=== PATIENT | female | born 1990 | race Two or more races ===

== ENCOUNTER 2024-11-05 11:48 | Observation (INO) | payer MEDICAID, SELFPAY ==
[2024-11-05] VITALS (13 sets, daily range): BP systolic 92–108; BP diastolic 49–71; PULSE 77–100; RESP 18
--- NOTE | 2024-12-01 18:37 | PM.OBTRLD ---
OB - Triage/Final Diagnosis Visit Information Comments/Additional reasons for admission: I have assessed the risk for this patient, Shelia Landis, and determined that she would benefit from observation care. Final Diagnosis (1) False labor: Code(s): O47.9 - False labor, unspecified Status: Acute
== END 2024-11-05 16:00 | disposition home or self-care (01) ==
PROVIDERS: Admitting Provider Obstetrics & Gynecology; Visit Provider Obstetrics & Gynecology
DX: O47.1 False labor at or after 37 completed weeks of gestation (principal); Z3A.37 37 weeks gestation of pregnancy
CPT/HCPCS: G0378; G0379

== ENCOUNTER 2024-11-10 07:20 | Observation (INO) | payer MEDICAID, SELFPAY ==
[2024-11-10] MEDS: TERBUTALINE SULFATE 1 MG/ML VIAL 0.25 MG SUB-Q (07:30)
--- NOTE | 2024-12-01 18:38 | PN_ITS ---
This report was moved to the correct visit on 12/02/2024. The original report was signed by Cody Guy MD on 12/01/241837. OB - Triage/Final Diagnosis Visit Information Comments/Additional reasons for admission: I have assessed the risk for this patient, Shelia Landis, and determined that she would benefit from observation care. Final Diagnosis (1) False labor: Code(s): O47.9 - False labor, unspecified Status: Acute Please be advised this is a medical document. It is intended for [id number] communication. It is written in medical language and may contain unfamiliar abbreviations or verbiage. Medical documents are intended to carry relevant information, facts as evident, and the clinical opinion of the practitioner at the time of the encounter. This report may have been done utilizing a voice recognition system. Attempts have been made to correct errors. However, there may be uncorrected grammatical, spelling, and recognition errors present. The file time of this note does not necessarily represent the time the patient was seen. Report Initialized date/time: Cody Guy MD 12/01/241837 Electronically signed by: Cody Guy MD 12/01/241837
== END 2024-11-10 08:54 | disposition home or self-care (01) ==
PROVIDERS: Admitting Provider Obstetrics & Gynecology; Visit Provider Obstetrics & Gynecology
DX: O47.1 False labor at or after 37 completed weeks of gestation (principal); Z3A.38 38 weeks gestation of pregnancy
CPT/HCPCS: 96372; G0378; G0379; J3105

== ENCOUNTER 2024-11-11 14:28 | Observation (INO) | payer MEDICAID, SELFPAY ==
[2024-11-11] VITALS (10 sets, daily range): BP systolic 92–116; BP diastolic 50–69; PULSE 67–85; BMI 24.7
--- NOTE | 2024-11-11 15:00 | LDADM ---
This patient, Shelia Landis, was admitted to Labor/Delivery/Recovery 108 on 11/11/24 at 14:28. Plans for labor, pain management and were discussed with patient. Patient/family oriented to hospital policies and general routines including ID bracelet, bed and alarms, visiting hours, pain management, procedures, bathroom and other care routines, personal items, smoking policy, room service/diet and guest tray routines, security routines, and visiting hours. Patient/Family are encouraged to report perceived risks to care and to ask questions if they do not understand what they are told or what they should do. See OBIX for further documentation.
== END 2024-11-11 17:10 | disposition home or self-care (01) ==
PROVIDERS: Admitting Provider Obstetrics & Gynecology; Visit Provider Obstetrics & Gynecology
DX: O47.1 False labor at or after 37 completed weeks of gestation (principal); Z3A.38 38 weeks gestation of pregnancy
CPT/HCPCS: G0378; G0379

== ENCOUNTER 2024-11-13 08:32 | Inpatient (IN) | payer MEDICAID, SELFPAY ==
[2024-11-13] VITALS (82 sets, daily range): BP systolic 70–127; BP diastolic 36–80; PULSE 57–291; RESP 16–17; TEMP 36.6–36.8; O2SAT 77–100; BMI 24.7
--- NOTE | 2024-11-13 08:32 | LDADM ---
This patient, Shelia Landis, was admitted to Labor/Delivery/Recovery 105 on 11/13/24 at 08:32. Plans for labor, pain management and were discussed with patient. Patient/family oriented to hospital policies and general routines including ID bracelet, bed and alarms, visiting hours, pain management, procedures, bathroom and other care routines, personal items, smoking policy, room service/diet and guest tray routines, security routines, and visiting hours. Patient/Family are encouraged to report perceived risks to care and to ask questions if they do not understand what they are told or what they should do. See OBIX for further documentation.
--- NOTE | 2024-11-13 10:22 | WPDOBADMIT ---
Obstetrics - Admit Note Admission Note: record reviewed. No pertinent additions to the history and/or any subsequent changes in the physical findings that are not consistent with the expected course of the were found. Additions to the history and/or subsequent changes in the physical findings follow. Admit for contractions, FHR noted to have decelerations, discussed with dr. talley decision to augment labor for delivery, SVE /-1 large amount of meconium fluid, IUPC placed, anticipate vaginal delivery
[2024-11-13] MEDS: LACTATED RINGERS 1,000 ML 125 ML (10:38)
[2024-11-13 11:23] LABS: Hematocrit 41.1 % (37.0-47.0); Hemoglobin 12.9 g/dL (12.0-15.0); Immature Granulocyte Percent A 1.1 % (0-0.5); Lymphocytes Absolute Auto 1.44 K/mm3 (0.9-3.2); Mean Corpuscular HGB Conc 31.4 g/dl (32-36); Mean Corpuscular Hemoglobin 26.7 pg (26-34); Mean Corpuscular Volume 84.9 fl (80-100); Nucleated Red Blood Cells Absolute Auto 0.000 K/mm3 (0.0-0.012); Nucleated Red Blood Cells Perc 0.0 % (0.0-0.2); Platelet Count Result 150 k/mm3 (150-375); Red Blood Count 4.84 M/mm3 (4.2-5.4); White Blood Count 11.4 K/mm3 (4.5-10.0)
[2024-11-13] MEDS: LACTATED RINGERS 1,000 ML 125 ML IV CONT (11:36)
[2024-11-13 12:03] LABS: Syphilis IgG/IgM Antibody Non-Reactive (Nonreactive)
[2024-11-13] MEDS: OXYTOCIN 30 UNITS/NS 500 ML 30 UNITS/500 ML BAG 999 UNITS IV CONT (13:30)
--- NOTE | 2024-11-13 13:37 | PM.OBPRVD ---
OB - Vaginal Delivery Note Procedure Delivery date: 11/13/24 Intrapartal Events: Decelerations and Other (meconium) Delivery monitor: External FHT and Internal Uterine Route of delivery: Episiotomy description: None Laceration Description: Perineal - 2nd Degree Delivery repair: vicryl Specimen: Yes Quantitative Blood Loss (ml): 200 Anesthesia type: Epidural Disposition: Floor Baby Date of : 11/13/24 Time of : 13:28 Gestational Age by Date: 38 Infant gender: Male presentation: vertex position: Left Occiput Anterior Placenta delivery description: Expressed Cord Vessel Description: 3 Vessels and Clamped/Cut score one minute: 6 score five minutes: 9
--- NOTE | 2024-11-13 13:39 | P.PNAN_ITS ---
Anes - Initial Pre Proc Eval Date/Time: 11/13/24 13:39 Surgeon: Cody Guy MD Pre Op Diagnosis: labor Patient Data Age: 34 Gender: F Height: 1.55 m Weight: 59.5 kg Last Vital Signs Pulse 76 11/13/24 13:31 BP 115/56 L 11/13/24 13:31 Pulse Ox 100 11/13/24 13:24 O2 Del Method Room Air 11/13/24 12:01 Allergies Allergy/AdvReac Type Severity Reaction Status Date / Time No Known Allergies Allergy Verified 11/10/24 07:35 Laboratory Tests 11/13/24 11:14 WBC 11.4 H K/mm3 (4.5-10.0) RBC 4.84 M/mm3 (4.2-5.4) Hgb 12.9 g/dL (12.0-15.0) Hct 41.1 % (37.0-47.0) MCV 84.9 fl (80-100) MCH 26.7 pg (26-34) MCHC 31.4 L g/dl (32-36) RDW 24.2 H % (11.5-14.5) Plt Count 150 k/mm3 (150-375) MPV 10.9 H fl (7.4-10.4) Immature Gran % (Auto) 1.1 H % (0-0.5) Neut % (Auto) 78.0 H % (45.5-73.1) Lymph % (Auto) 12.7 L % (18.3-44.2) [place] % (Auto) 7.1 % (2.6-8.5) Eos % (Auto) 0.7 % (0-4.4) Baso % (Auto) 0.4 % (0.2-1.2) Lymph # (Auto) 1.44 K/mm3 (0.9-3.2) [place] # (Auto) 0.8 H K/mm3 (0.1-0.6) Eos # (Auto) 0.1 K/mm3 (0-0.3) Baso # (Auto) 0.1 K/mm3 (0.0-0.1) Abs Immat Gran (auto) 0.13 H K/mm3 (0.00-0.031) Absolute Neuts (auto) 8.9 H K/mm3 (1.3-6.7) Absolute Nucleated RBC 0.000 K/mm3 (0.0-0.012) Nucleated RBC % 0.0 % (0.0-0.2) Syphilis IgG/IgM Ab Non-reactive (Nonreactive) Blood Type B Positive Antibody Screen Negative Patient hx anesthesia problems: none Family hx anesthesia problems: none Results Review: All pre-operative results and documents have been reviewed as part of the pre- operative evaluation. [facility] Social History Social History Smoking status: Never smoker Second hand tobacco smoke exposure: No Substance use: never Lack of Transportation: No Lack of Food: Never True Current Housing: I Have Housing Concerned About Future Housing: No Difficulty Paying Gas/Electric Bills: No Difficulty Paying for Meds: No Currently Unemployed: No Education: Trade/Vocational Certificate Difficulty w/ Childcare or Family Care: No Spiritual care concerns: No Anes - Eval Final PreProcedure Day of Procedure 11/13/24 13:39 Patient weight: normal Neurological: alert and oriented Last oral intake: >/= 8 hours ASA classification: II Emergent: no Anesthetic plan: proceed Anesthesia type and monitoring: regional epidural and standard monitoring Results Review: All pre-operative results and documents have been reviewed as part of the pre- operative evaluation. Informed Consent: The patient's anesthetic plan and its attendant risks and benefits were discussed with the patient/family/POA. Questions were solicited and answers provided to the satisfaction of the patient/family/POA.
[2024-11-13] MEDS: OXYTOCIN 30 UNITS/NS 500 ML 30 UNITS/500 ML BAG 125 UNITS IV CONT (14:05)
--- NOTE | 2024-11-13 14:37 | S_PTH ---
PATIENT: Shelia Landis LOC: [facility] U#:[id number] AGE/SX: 34/F ROOM: 285 RE11/13/[address]: Cody Guy MD : 1990 BED: 00 DIS: 11/15/2024 SPEC #: [id number] RECD: 11/16/24 08:03 STATUS: CHIVO REPaul #: [id number] GIOVANNI: 11/13/24 14:[address]: Juliana Engel DEPT: [facility] Surgical RECD BY: Lilian Renner ENTERED: 11/16/24 08:04 SP TYPE: Surgical OTHR DR: Cody Guy MD [employer] PHYSICIAN Tissues: A - Placenta Procedures: Hematoxylin and Eosin Stain Gross and Microscopic Level 5
[2024-11-13] MEDS: IBUPROFEN 600 MG TABLET PO (17:52)
[2024-11-13] MEDS: ACETAMINOPHEN 325 MG TABLET 650 MG PO (20:18)
[2024-11-14] VITALS: BP 98/57; PULSE 62; RESP 16; TEMP 36.3; O2SAT 99
[2024-11-14 04:00] VITALS: BP 116/67; PULSE 51; RESP 16; TEMP 36.7; O2SAT 100
[2024-11-14 04:12] VITALS: PULSE 51; O2SAT 99
[2024-11-14 04:13] VITALS: BP 116/67; PULSE 50
[2024-11-14 04:25] LABS: Hematocrit 39.5 % (37.0-47.0); Hemoglobin 12.4 g/dL (12.0-15.0)
[2024-11-14] MEDS: IBUPROFEN 600 MG TABLET PO ×2 (04:25→17:04)
[2024-11-14] MEDS: MULTIVIT/MIN/PREN/FOL AC/IRON TABLET 1 TAB PO (09:05)
[2024-11-14 09:15] VITALS: BP 97/66; PULSE 65; RESP 16; TEMP 36.5; O2SAT 100
--- NOTE | 2024-11-14 11:40 | P.PNAN_ITS ---
Anes-Prog Note L&D Date/Time: 11/14/24 11:40 Comfortable throughout: labor and delivery Neuraxial method: epidural Epidural/Spinal procedure site: clean & non-tender Neuro status: Neuro function grossly intact. Cardiovascular status: normal Respiratory status: normal Airway patency: baseline Mental status: baseline Post-Op hydration status: normal Vital Signs: Last Vital Signs Temp 97.7 F 11/14/24 09:15 Pulse 65 11/14/24 09:15 Resp 16 11/14/24 09:15 BP 97/66 L 11/14/24 09:15 Pulse Ox 100 11/14/24 09:15 O2 Del Method Room Air 11/14/24 08:30 Pain score (VAS): 0 I/O: Intake & Output 11/13/24 11/14/24 11/14/24 23:59 07:59 15:59 Intake Total 500 Output Total 1630 Balance -1630 500 Post-procedural complaints: none Patient feedback: Patient satisfied with anesthetic care. pt does not speak [place]. spouse at bedside provided interpretation. pt nods in agreement.
--- NOTE | 2024-11-14 11:48 | P.PNOB_ITS ---
OB - PN: Subj Subjective Date/time seen: 11/14/24 11:48 Patient comments: no complaints, pain well controlled, incisional pain, tolerating diet and flatus present OB - PN: Obj Data Labs 11/14/24 04:16 Labs: Laboratory Results - last 24 hr 11/13/24 11/14/24 11:14 04:16 Hgb 12.4 Hct 39.5 Syphilis IgG/IgM Ab Non-reactive Blood Type B Positive Antibody Screen Negative OB - PN A/P Plan day: 1 Plan: routine care Comments: No problems, routine care Time Spent With Patient Time: Total time spent is greater than 50% in coordination of care (as documented) at patient's floor/unit and/or counseling patient: Exam 2 Const: General: comfortable, no acute distress and alert Resp: Effort & Inspection: normal respiratory effort Auscultation: no crackles, no rales and no rhonchi Cardio: Rate: regular rate Heart sounds: no click, no murmurs and no rubs GI: Inspection: non-distended GI Palp: No Tenderness to palpation present (GI) Auscultation: normal bowel sounds Other: Incision - CDI Extrem: General: normal to inspection, no pedal edema and no calf tenderness
[2024-11-14 19:03] VITALS: BP 103/59; PULSE 76; RESP 18; TEMP 36.8; O2SAT 99
[2024-11-15 08:15] VITALS: BP 97/62; PULSE 73; RESP 16; TEMP 36.9; O2SAT 100
[2024-11-15] MEDS: IBUPROFEN 600 MG TABLET PO (08:25)
[2024-11-15] MEDS: MULTIVIT/MIN/PREN/FOL AC/IRON TABLET 1 TAB PO (08:25)
--- NOTE | 2024-11-15 10:49 | P.PNOB_ITS ---
OB - PN: Subj Subjective Date/time seen: 11/15/24 10:49 Patient comments: no complaints, pain well controlled and tolerating diet OB - PN: Obj Data Labs 11/14/24 04:16 OB - PN A/P Plan day: 2 Plan: routine care and discharge home Time Spent With Patient Time: Total time spent is greater than 50% in coordination of care (as documented) at patient's floor/unit and/or counseling patient: Exam 2 Const: General: comfortable and no acute distress Resp: Effort & Inspection: normal respiratory effort Auscultation: no rales, no rhonchi and no wheezes Cardio: Rate: regular rate Heart sounds: no click, no murmurs and no rubs GI: GI Palp: Yes Soft to palpation and No Tenderness to palpation present (GI) Auscultation: normal bowel sounds Extrem: General: normal to inspection, no pedal edema and no calf tenderness
--- NOTE | 2024-11-15 10:49 | PM.OBDSVD ---
DS: Admitting Diagnosis Discharge Date 11/15/2024 Admitting Diagnosis Term DS: Discharge Diagnosis Discharge Diagnosis (1) Term delivered: Code(s): O80 - Encounter for full-term uncomplicated delivery Status: Acute OB - DS: Summary OB Procedures : None OB Procedures Intrapartum: Spontaneous Vag Delivery OB Procedures: : None Peripartum Data Laceration Description: Perineal - 2nd Degree Episiotomy description: None Time Spent with Patient Time attestation: Total time spent providing and/or coordinating discharge services: DS: Data Data Completed and Pending Pending studies at discharge: Pending at discharge 11/13/24 14:37 Surgical [PTH] Routine Discharge Plan Discharge Discharging Clinician: Cody Guy Patient Disposition: Home Activity: pelvic rest Diet: regular Patient Instructions: Antibiotic Form Patient Language: [place] Stand Alone Forms: General Discharge Information Follow-up/Referrals: Cody Guy MD [Physician] - Date of admission: 11/13/24 08:32 Primary Care Provider: PHYSIC[facility] Admitting Provider: Cody Guy Attending physician on admission: Cody Guy Condition: Stable
== END 2024-11-15 13:20 | disposition home or self-care (01) | DRG 560 ==
LOC: ANHLDR 10:52 → ANHOBPP 16:45 → ANHOB2 11-14 08:51
PROVIDERS: Advanced Practice Midwife; Admitting Provider Obstetrics & Gynecology; Visit Provider Obstetrics & Gynecology
DX: O36.8330 Maternal care for abnormalities of the fetal heart rate or rhythm, third trimester, not applicable or unspecified (principal); Z37.0 Single live birth; Z3A.38 38 weeks gestation of pregnancy; O70.1 Second degree perineal laceration during delivery; O77.0 Labor and delivery complicated by meconium in amniotic fluid
CPT/HCPCS: 36415; 85014; 85018; 85025; 86593; 86850; 86900; 86901; 88307; A9270; J2590; J2795; J7120